=== PATIENT | male | born 1990 | race Caucasian/White ===

== ENCOUNTER 2024-07-27 12:03 | Emergency (ER) | payer SELFPAY ==
[2024-07-27 13:03] LABS: APPEARANCE,URINE CLEAR; BILIRUBIN,URINE NEGATIVE (NEGATIVE); COLOR,URINE YELLOW; GLUCOSE,URINE NEGATIVE (NEGATIVE); KETONES,URINE NEGATIVE (NEGATIVE); LEUKOCYTE ESTERASE,URINE SMALL (NEGATIVE); NITRITE,URINE POSITIVE (NEGATIVE); OCCULT BLOOD,URINE LARGE (NEGATIVE); PROTEIN,URINE 100 mg/dL (NEGATIVE); UROBILINOGEN,URINE 0.2 EU/dL (<2.0)
[2024-07-27 13:19] LABS: RBC,URINE 35-45 (0-2/HPF)
[2024-07-27 13:20] LABS: BACTERIA,URINE RARE (NEGATIVE); EPITHELIAL CELLS,URINE FEW (NONE-FEW)
[2024-07-27] MEDS: cefTRIAXone 1 GM in Sodium Chloride 0.9% 50 ML IV ONE (14:41)
[2024-07-27] MEDS: Ondansetron 4 MG/2 ML SDV IVPUSH ONE (14:41)
[2024-07-27] MEDS: Sodium Chloride 0.9% 1,000 ML IV ONE (14:41)
[2024-07-27] MEDS: Ketorolac 30 MG/ML SDV IVPUSH ONE (14:41)
[2024-07-27 14:46] LABS: BASOPHILS ABSOLUTE AUTO 0.03 K/uL (0.00-0.20); BASOPHILS PERCENT AUTO 0.2 % (0.0-1.0); EOSINOPHILS ABSOLUTE AUTO 0.03 K/uL (0.00-0.45); EOSINOPHILS PERCENT AUTO 0.2 % (0.0-6.0); HEMATOCRIT 47.1 % (42.0-52.0); IMMATURE GRAN ABSOLUTE AUTO 0.08 K/uL (0.00-0.05); IMMATURE GRAN PERCENT AUTO 0.5 % (0.0-0.4); LYMPHOCYTES ABSOLUTE AUTO 1.19 K/uL (1.00-4.80); LYMPHOCYTES PERCENT AUTO 6.8 % (24.0-44.0); MEAN CORPUSCULAR HEMOGLOBIN 29.6 pg (28.0-32.0); MEAN CORPUSCULAR HGB CONC 36.1 g/dL (32.0-36.0); MEAN CORPUSCULAR VOLUME 81.9 fL (83.0-99.0); MEAN PLATELET VOLUME 9.7 fL (9.4-12.4); MONOCYTES ABSOLUTE AUTO 1.14 K/uL (0.00-0.80); MONOCYTES PERCENT AUTO 6.5 % (0.0-8.0); NEUTROPHILS ABSOLUTE AUTO 14.95 K/uL (1.80-7.70); NEUTROPHILS PERCENT AUTO 85.8 % (41.0-71.0); PLATELET COUNT,PLT 226 K/uL (150-400); RED BLOOD CELL COUNT 5.75 M/uL (4.52-5.90); WHITE BLOOD CELL COUNT,WBC 17.42 K/uL (3.9-11.3)
[2024-07-27 15:08] LABS: A/G RATIO 1.5 (0.9-1.6); ALBUMIN 4.8 g/dL (3.4-5.0); BILIRUBIN TOTAL 1.4 mg/dL (0.2-1.0); CALCIUM 9.7 mg/dL (8.5-10.1); CARBON DIOXIDE,CO2 29.3 mmol/L (21.0-32.0); CREATININE 1.2 mg/dL (0.8-1.3); EST CRCL DRUG DOSING (CG) 102.69 mL/min; POTASSIUM,K 3.9 mmol/L (3.5-5.1); PROTEIN TOTAL,TP 8.1 g/dL (6.4-8.2)
[2024-07-27] MEDS: Iopamidol 755 MG/ML 500 ML Multipack Bottle IVPUSH STA (16:44)
== END 2024-07-27 17:51 | disposition home or self-care (01) ==
LOC: MW.ED 12:03
DX: N12 Tubulo-interstitial nephritis, not specified as acute or chronic (principal); Z79.899 Other long term (current) drug therapy; Z88.0 Allergy status to penicillin; Z75.8 Other problems related to medical facilities and other health care
CPT/HCPCS: 36415; 74176; 74177; 80053; 81001; 85025; 87086; 87088; 87186; 96361; 96365; 96375; 99284; J0696; J1885; J2405; J3490; J7030; Q9967

== ENCOUNTER 2025-04-17 09:38 | Emergency (ER) | payer OTHER | END 2025-04-17 10:40 | disposition home or self-care (01) | LOC: MW.ED 09:38 | DX: T22.211A Burn of second degree of right forearm, initial encounter (principal); T31.0 Burns involving less than 10% of body surface; X13.1XXA Other contact with steam and other hot vapors, initial encounter; Y99.0 Civilian activity done for income or pay | CPT/HCPCS: 99283; 99284 ==